=== PATIENT | male | born 1980 | race Caucasian/White ===

== ENCOUNTER → 2017-12-17 | Outpatient (CLI) | payer OTHER | END | disposition home or self-care (01) | LOC: KCIC US 13:04 | DX: R10.2 Pelvic and perineal pain (principal) | CPT/HCPCS: 76857 ==

== ENCOUNTER → 2018-02-26 | Outpatient (CLI) | payer OTHER | END | disposition home or self-care (01) | LOC: KCIC US 12:26 | DX: N43.3 Hydrocele, unspecified (principal); I87.8 Other specified disorders of veins | CPT/HCPCS: 76870 ==

== ENCOUNTER → 2018-07-13 | Outpatient (CLI) | payer OTHER ==
[~2018-07-13] MED LIST: GADOBUTROL 7.5 MMOL/7.5 ML VIAL IV ONE
--- NOTE | 2018-07-13 09:32 | KCIC ---
EXAM: AP, Leonard, Miladis and bilateral lateral views of the skull. DATE: 07/13/2018 12:00 AM CLINICAL INDICATION: COMPARISON: None. FINDINGS: Paranasal sinuses are well aerated. There are no displaced fractures. There are no orbital radiopaque foreign bodies. Dental hardware is seen. IMPRESSION: 1. No acute osseous abnormality. 2. No orbital retained radiopaque foreign body. Electronically signed by: Joce Dickey MD (07/13/2018 9:29 AM) [id number]
--- NOTE | 2018-07-13 10:46 | KCIC ---
MRI Brain with and without contrast History: Right ear tinnitus, hearing loss of bilaterally Technique: Multiplanar, multi sequential pre and postcontrast MR imaging was performed of the brain, dedicated images of internal auditory canals also performed. Contrast: 7 cc Gadavist Comparison: None Findings: There is no evidence of recent infarct or cytotoxic edema. The ventricles, sulci, and cisterns are within normal limits in size and configuration. There is no significant midline shift, intraaxial mass effect, or focal abnormal extra-axial fluid collection. There is no significant signal abnormality of the brain parenchyma. There is no nodular parenchymal or leptomeningeal enhancement. There is preservation of the major intracranial flow-voids at the skull base. The cerebellar tonsils are normal in location. There is no significant abnormality of the pineal gland or pituitary gland. There is patchy very minimal ethmoid air cell mucosal thickening, negligible right frontal sinus mucosal thickening. The mastoid air cells are aerated. There is preserved marrow signal of the clivus. There is no enhancing mass of the cerebellopontine angles or the internal auditory canals. Vestibules, cochlea, semicircular canals appear normally formed bilaterally. Impression: 1. There is no significant intracranial abnormality. There is no enhancing mass of the internal auditory canals or cerebellopontine angles. Electronically signed by: Omar Santiago MD (07/13/2018 10:43 AM) [id number]
== END | disposition home or self-care (01) ==
LOC: KCIC MRI 09:09
PROVIDERS: ATTEND Otolaryngology
DX: H93.11 Tinnitus, right ear (principal); H91.93 Unspecified hearing loss, bilateral; T15.90XA Foreign body on external eye, part unspecified, unspecified eye, initial encounter
CPT/HCPCS: 70030; 70553; A9585